=== PATIENT | male | born 1960 | race Caucasian/White ===

== ENCOUNTER 2020-08-29 08:29 | Day surgery (SDC) | payer BC ==
[2020-08-24 15:06] LABS: Basophils % 0.6 % (0-1.3); Hematocrit 41.6 % (39.6-49.0); Lymphocytes % 36.5 % (15.3-44.8); MPV 8.5 fL (7.6-11.3); RBC Red Blood Cell Count 4.58 M/uL (4.33-5.43)
[2020-08-24 15:23] LABS: BUN Blood Urea Nitrogen 13 mg/dL (7-18); Bicarbonate 27 mmol/L (21-32); Glucose Level 97 mg/dL (74-106); Potassium 4.2 mmol/L (3.5-5.1); Sodium Level 141 mmol/L (136-145)
--- NOTE | 2020-08-24 15:36 | RAD REPORT ---
EXAM DESCRIPTION: RAD - Chest Pa And Lat (2 Views) - 08/24/2020 2:57 pm CLINICAL HISTORY: PRE OP, pending hernia repair COMPARISON: None TECHNIQUE: Frontal and lateral views of the chest were obtained. FINDINGS: The lungs are clear. Hilar regions within normal limits for a slightly shallow inspirati on exam. Heart size is normal and central vasculature is within normal limits. No pleural effusion o r pneumothorax seen. No acute bony finding noted. No aortic abnormality. IMPRESSION: No acute cardiopulmonary process.
[~2020-08-29 08:29] MED LIST: CEFAZOLIN/SWI 1gm 1 GM/10 ML SYR IVP SCH
[2020-08-29] MEDS ORDERED: CEFAZOLIN/SWI 1gm 1 GM/10 ML SYR ONE (09:16)
[2020-08-29] MEDS ORDERED: NA CHLORIDE 0.9% 1,000 ML ONE ×2 (09:16→11:42)
[2020-08-29] MEDS ORDERED: CELECOXIB 100 MG CAPSULE ONE (09:24)
[2020-08-29] MEDS ORDERED: ACETAMINOPHEN 500 MG TAB ONE (09:24)
[2020-08-29] MEDS ORDERED: FENTANYL CITR 250 MCG/5 ML ONE (10:16)
[2020-08-29] MEDS ORDERED: propofoL 200 MG/20 ML VIAL IV ONE (10:16)
[2020-08-29] MEDS ORDERED: MIDAZOLAM HCL 2 MG/2 ML INJ ONE (10:16)
[2020-08-29] MEDS ORDERED: GLYCOPYRROLATE 0.2 MG/ML SYR ONE ×2 (10:16)
[2020-08-29] MEDS ORDERED: LIDOCAINE 2% MPF 5 ML VIAL ONE (10:20)
[2020-08-29] MEDS ORDERED: ROCURONIUM 50 MG/5 ML VIAL IV ONE (10:20)
[2020-08-29] MEDS ORDERED: ONDANSETRON 4 MG/2 ML VIAL ONE (10:20)
[2020-08-29] MEDS ORDERED: EPHEDRINE SULF 50 MG/ML VIAL ONE (11:21)
[2020-08-29] MEDS ORDERED: HYDROCODONE/APAP 7.5/325 MG TAB ONE (12:53)
--- NOTE | 2020-08-29 13:58 | OP ---
Date of Procedure: 08/29/2020 Surgeon: Rhys Jack MD [employer]er: [email or web address] Redmond. Preoperative Diagnosis: Left inguinal hernia. Postoperative Diagnosis: Left inguinal hernia. Procedure: Repair of left inguinal hernia. Estimated Blood Loss: Minimal. Specimen: Hernia sac and cord lipoma. Finding: As above. Anesthesia: General. Complications: None. Disposition: The patient tolerated the procedure in stable condition and taken to Recovery in good g eneral condition. Procedure In Detail: The patient was brought to the OR and placed in supine position. General anest hesia begun. The patient was prepped and draped in the usual sterile fashion. Marcaine 0.5% infiltr ated in a field block fashion in the left groin and then 15-blade was used to make a 4 cm oblique inc ision between the pubic tubercle and the anterior iliac superior spine. Subcutaneous tissue divided. Julio C fascia identified and divided. Aponeurosis was identified and mobilized inferiorly to expos e the shelving edge, then opened through the external ring. The ilioinguinal nerve and cord structur es identified and retracted out of the field of dissection. Cord skeletonized. Large indirect sac i dentified, high ligation with a 2-0 Prolene suture ligature and a free hand tie performed, and then h ernia sac excised and sent to Pathology. Subsequently, cord lipoma also identified and the cord stru ctures excised and the base tied off with 2-0 chromic. Marlex mesh plug placed in the internal ring, secured with VersaTack stapler. Onlay mesh placed on the inguinal floor, secured medially to the pu bic tubercle, superiorly to the conjoined tendon, laterally to each other, inferiorly to the shelving edge. Then, cord structures and ilioinguinal nerve were placed back in anatomical location. A 2-0 Prolene was used to close the aponeurosis. A 3-0 chromic used to reapproximate the Julio C fascia and 3-0 chromic used to close the skin. Sterile dressing was applied. The patient was awakened and talha en to Recovery in good general condition. Discharge Note: The patient will go to Day Surgery and home when stable. Disposition: Home. Condition: Stable. Discharge Instructions: Resume home medications and diet. Activity as tolerated. No heavy lifting. Remove outer dressing in 2 days. Keep Steri-Strips on at all times. Ice pack, scrotal support. T ylenol No.3 one tablet p.o. q.4 p.r.n. pain. Followup in my office in 2 weeks. Call for appointment . FRANK/NYDIA Voice ID: [id number] Report ID: [id number]
[2020-08-29 14:52] VITALS: BP 127/78; TEMP 97; O2SAT 99
== END 2020-08-29 14:36 | disposition home or self-care (01) ==
LOC: OR 08:29
PROVIDERS: ATTEND Surgery
PROC: 0YU60JZ Supplement Left Inguinal Region with Synthetic Substitute, Open Approach (ICD-10-PCS; principal; 2020-08-29 10:00)
DX: K40.90 Unilateral inguinal hernia, without obstruction or gangrene, not specified as recurrent (principal); Z20.822 Contact with and (suspected) exposure to COVID-19
CPT/HCPCS: 93005; 85025; 80048; 36415; 82947; 88302; 71046; 49505; U0002; J2704; J2250; J3010; J0690; J7030 ×2; J2405